=== PATIENT | male | born 1995 | race African-American/Black ===

== ENCOUNTER 2017-12-13 19:40 | Emergency (ER) | payer MEDICAID ==
[~2017-12-13] VITALS: Ht 188 cm; Wt 86.2 kg
[2017-12-13 22:30] VITALS: BP 109/62
[2017-12-13] MEDS: IBUPROFEN 600 MG TAB PO ONE ×2 (23:36→23:44)
== END 2017-12-13 23:43 | disposition home or self-care (01) ==
LOC: ER 19:40
DX: S63.501A Unspecified sprain of right wrist, initial encounter (principal); S60.221A Contusion of right hand, initial encounter; F17.210 Nicotine dependence, cigarettes, uncomplicated; W22.8XXA Striking against or struck by other objects, initial encounter; Y93.89 Activity, other specified; Y92.89 Other specified places as the place of occurrence of the external cause; Y99.8 Other external cause status
CPT/HCPCS: 29125; 73110; 73130